=== PATIENT | male | born 1965 | race Two or more races ===

== ENCOUNTER 2018-06-08 17:23 | Inpatient (IN) | payer MEDICAID ==
[~2018-06-08] VITALS: Ht 167.6 cm; Wt 76.7 kg
--- NOTE | 2018-06-08 19:00 | NUR ---
MS RN RECEIVED PT ON BED, A/O X 3, NOT IN ANY FORM OF DISTRESS, RESPIRATIONS EVEN AND UNLABORED, NO SOB NOTED, STABLE CONDITION. SAFETY MEASURES IN PLACE. WILL CONTINUE TO MONITOR.
--- NOTE | 2018-06-08 19:01 | NUR ---
RN NOTES ADMISSION RECEIVED PT. FROM AMBULANCE. PT. IS A&OX4. BREATHING ON ROOM AIR UNLABORED. VITAL SIGNS TAKEN. NO S/S OF ACUTE DISTRESS. PT.'S WEIGHT 167.8 LBS. PT. REFUSED HAVING BELONGINGS CHECKED BY ASSISTANT KITCHEN MANAGER. PT.'S BED IS IN LOWEST, AND LOCKED POSITION. 2 SIDE RAILS UP, AND INSTRUCTED PT. TO USE CALL LIGHT FOR ASSISTANCE. ALL NEEDS MET. WILL ENDORSE REPORT TO NURSE.
[2018-06-08 19:05] VITALS: BP 138/74
--- NOTE | 2018-06-08 19:36 | NUR ---
ENDORSE PT TO NEXT NIGHT RN PT STABLE
--- NOTE | 2018-06-08 19:37 | NUR ---
RN CLOSING NOTES ENDORSED REPORT TO NURSE. PT. IS A&OX4. VITALS WNL. PT. IS BREATHING UNLABORED ON ROOM AIR. NO S/S OF ACUTE DISTRESS. NOTIFIED MD THAT PT. HAS ARRIVED TO ROOM 312. BED IS IN LOWEST, AND LOCKED POSITION.
[2018-06-08 20:00] VITALS: BP 145/74
[2018-06-08] MEDS ORDERED: Z GUARD REMEDY 2 OZ OINT TP PRN (20:30)
[2018-06-08] MEDS ORDERED: ONDANSETRON HCL/PF 4 MG/2 ML VIAL IVP PRN (20:30)
[2018-06-08] MEDS ORDERED: ZOLPIDEM TARTRATE 5 MG TABLET PO PRN (20:30)
[2018-06-08] MEDS ORDERED: ACETAMINOPHEN 325 MG TABLET PO PRN (20:30)
[2018-06-08] MEDS ORDERED: FEE PK DOSING 1 MIN EA MC ONE (20:35)
--- NOTE | 2018-06-08 21:00 | NUR ---
MS RN NOTES RECEIVED PT ON BED. A/O X 4. ON ROOM AIR NO RESPIRATORY DISTRESS NOTED. PHYSICAL ASSESSMENT DONE. IV ACCESS ON LEFT WRIST G20 IV RUNNING @ 75CC/HR. HEAD OF BED ELEVATED. SIDE RAILS UP. CALL LIGHT WITHIN REACH. BED ALARM ON. WILL CONTINUE TO MONITOR PT CLOSELY.
[2018-06-08] MEDS: IV NS 0.9% 1,000 ML IV PRN (21:42)
[2018-06-08] MEDS: HYDROCODONE/APAP 5/325MG 1 EACH TABLET PO PRN (23:08)
[2018-06-09] MEDS: HYDROCODONE/APAP 10/325MG 1 EA TABLET PO PRN ×3 (00:57→21:12)
[2018-06-09] MEDS: VANCOMYCIN 1 GM in IV D5W 250 ML IV SCH ×2 (01:00→14:25)
[2018-06-09 04:00] VITALS: BP 113/69
--- NOTE | 2018-06-09 06:33 | NUR ---
MS RN NOTES NO ACUTE CHANGES NOTED DURING THE SHIFT. PROVIDED COMFORT AND SAFETY. WILL ENDORSE TO THE AM NURSE FOR CONTINUITY OF CARE.
[2018-06-09 07:18] LABS: BASOPHILS % (AUTO) 0.2 % (0.0-2.0); EOSINOPHILS % (AUTO) 2.5 % (0.0-6.0); HEMATOCRIT 39 % (39-51); HEMOGLOBIN 12.8 g/dL (13.5-17.5); LYMPHOCYTES # (AUTO) 1.4 /CMM (0.8-4.8); LYMPHOCYTES % (AUTO) 8.1 % (20.0-44.0); MEAN CORPUSCULAR HGB CONC 33 g/dl (31.0-36.0); MEAN CORPUSCULAR VOLUME 95 fL (80-96); MONOCYTES # (AUTO) 1.4 /CMM (0.1-1.30); MONOCYTES % (AUTO) 8.1 % (2.0-12.0); NEUTROPHILS # (AUTO) 14.5 /CMM (1.8-8.9); NEUTROPHILS % (AUTO) 81.1 % (43.0-81.0); PLATELET COUNT (AUTO) 252 /CMM (150-450); RED BLOOD CELL COUNT(AUTO) 4.06 MIL/uL (4.5-6.0); WHITE BLOOD COUNT (AUTO) 17.8 K/uL (4.3-11.0)
--- NOTE | 2018-06-09 07:30 | NUR ---
MS RN OPENING NOTES RECEIVED PT ON BED. A/O X 4. ON ROOM AIR NO RESPIRATORY DISTRESS NOTED. IV ACCESS ON LEFT WRIST G20 IV NS @ 75CC/HR. HEAD OF BED ELEVATED. SIDE RAILS UP. CALL LIGHT WITHIN REACH. BED ALARM ON. BED IS LOW NAD IN LOCKED POSITION.WAITING FOR WOUND CARE CONSULT.WILL CONTINUE TO MONITOR.
[2018-06-09 07:35] LABS: CALCIUM, SERUM 8.2 mg/dL (8.5-10.1); CREATININE 0.8 mg/dL (0.6-1.3); MAGNESIUM 1.9 mg/dL (1.8-2.4); PHOSPHORUS 3.5 mg/dL (2.5-4.9); POTASSIUM 3.4 mmol/L (3.5-5.1)
[2018-06-09 07:49] LABS: THYROID STIMULATING HORMONE 2.73 uIU/mL (0.358-3.74)
[2018-06-09] MEDS: PANTOPRAZOLE 40 MG TABLET.DR PO SCH (07:49)
[2018-06-09] MEDS: HYDROCODONE/APAP 5/325MG 1 EACH TABLET PO PRN ×2 (07:58→12:00)
[2018-06-09 08:00] VITALS: BP 125/71
[2018-06-09] MEDS: CEFTRIAXONE 2 G in IV D5W 100 ML IV SCH (11:57)
--- NOTE | 2018-06-09 12:32 | NUR ---
MS RN NOTE SEEN BY ,UPDATED ABOUT PATIENT CONDITION ABOUT LOW GRADE FEVER AND WAITING FOR WOUND CARE CONSULT.UPDATED ABOUT NEW LABS WITH POTASSIUM LEVEL OF 3.4.WILL CONTINUE TO MONITOR
--- NOTE | 2018-06-09 13:26 | NUR ---
WOUND CARE CONSULT: PT PRESENTS WITH RT KNEE OPEN WOUND WITH FOUL PURULENT DRAINAGE AND SURROUNDING REDNESS WITH EDEMA. PT UNABLE TO TOLERATE PROBING OF WOUND DUE TO DISCOMFORT. RECOMMEND ORTHO/SURGICAL CONSULT. DISCUSSED WOUND CARE/SKIN PROTECTION WITH NURSING STAFF. PT IS CONTINENT AND INDEPENDENT WITH BED MOBILITY. WILL SEE PRN. MONCADA IN AGREEMENT WITH PLAN OF CARE. Addendum: 06/09/18 at 1328 by CALEB MORIN WNDNU Amended: Links added.
--- NOTE | 2018-06-09 13:54 | NUR ---
PATIENT XRAY DISC FROM [employer] SEND TO [facility] FOR UPLOAD.AWAITS ORTHO CONSULT.
[2018-06-09] MEDS ORDERED: POTASSIUM CHLORIDE 20 MEQ TAB.PRT.SR PO SCH (14:00)
[2018-06-09] MEDS: IV NS 0.9% 1,000 ML IV PRN (15:25)
--- NOTE | 2018-06-09 15:50 | NUR ---
PATIENT SEEN BY GLASS CHECKER AND RECOMMEND PSYCHE EVAL R/T DEPRSSION,DR. FAUSTIN MADE AWARE,FACE SHEET FAX TO [employer] FOR CONSULT.PER SHIREEN PT ALSO HOMELESS AND WILL NEED [facility] POST D/C.
[2018-06-09 16:00] VITALS: BP 132/81
--- NOTE | 2018-06-09 16:02 | NUR ---
MS RN NOTE SEEN BY ,WOUND CARE DONE AND SEND FLUID FOR ANALYSIS.WILL CONTINUE TO MONITOR.
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
--- NOTE | 2018-06-09 16:58 | NUR ---
MS RN NOTE GOT CALL FROM SOSA FROM LAB,TOLD THAT SPECIMEN NOT ENOUGH TO DO BODY FLUID ANALYSIS AND CRYSTALS. MADE AWARE,TO DO GRAM STAIN AND CULTURE AND OK TO CANCEL OTHER ORDERS.SOSA FROM LAB MADE AWARE.LOGGED TO DO CULTURE GRAM STAIN.WILL CONTINUE TO MONITOR.
--- NOTE | 2018-06-09 18:54 | NUR ---
MS RN CLOSING NOTES PT ON BED. A/O X 4. ON ROOM AIR NO RESPIRATORY DISTRESS NOTED. IV ACCESS ON LEFT WRIST G20 IV NS @ 75CC/HR. HEAD OF BED ELEVATED. SIDE RAILS UP. CALL LIGHT WITHIN REACH. BED ALARM ON. BED IS LOW AND IN LOCKED POSITION.MILD DRAINAGE PRESENT FROM R KNEE.WRAP WITH DYAN BAND.PRN PAIN MEDS GIVEN.WILL ENDORSE TO PM NURSE FOR NADINE.
--- NOTE | 2018-06-09 19:00 | NUR ---
RECIEVED ALERT AND ORIENTATED NOTED HE UNDID THE ACEWRAP STATED IT WAS UNCOMFORTABLE. EXPLAINED TO HIIM WHY THE DYAN WRAP IS BEING USED. HE STATED HE KNOWS BUT I NEED TO TAKE IT OFF SOMETIMES. KNEE IS SWOLLEN AND WARM TO TOUCH. FAMILY AT THE BEDSIDE
[2018-06-09 20:00] VITALS: BP 134/80
[2018-06-09 21:03] VITALS: BP 134/80
[2018-06-10] MEDS: VANCOMYCIN 1 GM in IV D5W 250 ML IV SCH ×3 (01:50→21:53)
[2018-06-10] MEDS: HYDROCODONE/APAP 10/325MG 1 EA TABLET PO PRN ×3 (03:43→11:53)
[2018-06-10 04:00] VITALS: BP 145/74
[2018-06-10 04:05] VITALS: BP 134/80
[2018-06-10 04:11] VITALS: BP 145/74
--- NOTE | 2018-06-10 05:40 | NUR ---
ENDING NOTES: ALERT AND ORIENTATED. C/O PAIN RIGHT KNEE X2 LAST DOSE NORCO 10/325 TAB 1 GIVEN AT 03:45 AND EFFECTIVE FOR RIGHT KNEE PAIN. DRINKS WATER EXCESIVLY AND VOID FREQUETLY. LEGS UP ON PILLOW. RIGHT KNEE SWOLLEN. HE TAKES OF THE DRESSING , STSTING HIS LEG ITCHED OR IT FELT BETTER W/O DRESSING. INSTRUCTED HIM TO NOTE TAKE THE DRESSING OFF.
[2018-06-10 07:37] LABS: CALCIUM, SERUM 8.5 mg/dL (8.5-10.1); CREATININE 0.8 mg/dL (0.6-1.3); POTASSIUM 3.5 mmol/L (3.5-5.1)
[2018-06-10 08:00] VITALS: BP 130/84
[2018-06-10] MEDS: PANTOPRAZOLE 40 MG TABLET.DR PO SCH (08:10)
[2018-06-10] MEDS: MAGNESIUM HYDROXIDE 30 ML UDC PO PRN (11:51)
[2018-06-10] MEDS: CEFTRIAXONE 2 G in IV D5W 100 ML IV SCH (11:51)
[2018-06-10] MEDS: DULOXETINE HCL 30 MG CAPSULE.DR PO SCH (11:51)
[2018-06-10 16:00] VITALS: BP 142/73
[2018-06-10] MEDS: LACTOBACILLUS RHAMNOSUS GG 1 EACH CAP.SPRINK PO SCH (17:22)
[2018-06-10] MEDS: HYDROCODONE/APAP 5/325MG 1 EACH TABLET PO PRN ×3 (17:22→21:52)
[2018-06-10 20:00] VITALS: BP 145/84
[2018-06-11] VITALS: BP 139/73
[2018-06-11 04:00] VITALS: BP_SYST 139; BP_SYST 151; BP_DIAS 77; BP_DIAS 92
[2018-06-11] MEDS: VANCOMYCIN 1 GM in IV D5W 250 ML IV SCH ×3 (06:15→22:39)
[2018-06-11 07:26] LABS: BASOPHILS # (AUTO) 0.2 /CMM (0.0-0.2); BASOPHILS % (AUTO) 1.2 % (0.0-2.0); EOSINOPHILS % (AUTO) 2.1 % (0.0-6.0); HEMATOCRIT 38 % (39-51); HEMOGLOBIN 12.6 g/dL (13.5-17.5); LYMPHOCYTES # (AUTO) 2.2 /CMM (0.8-4.8); MEAN CORPUSCULAR HGB CONC 34 g/dl (31.0-36.0); MEAN CORPUSCULAR VOLUME 93 fL (80-96); MONOCYTES # (AUTO) 1.4 /CMM (0.1-1.30); MONOCYTES % (AUTO) 9.8 % (2.0-12.0); NEUTROPHILS # (AUTO) 10.6 /CMM (1.8-8.9); NEUTROPHILS % (AUTO) 71.9 % (43.0-81.0); PLATELET COUNT (AUTO) 353 /CMM (150-450); RED BLOOD CELL COUNT(AUTO) 4.02 MIL/uL (4.5-6.0); WHITE BLOOD COUNT (AUTO) 14.7 K/uL (4.3-11.0)
[2018-06-11 07:41] LABS: CALCIUM, SERUM 8.6 mg/dL (8.5-10.1); CREATININE 0.8 mg/dL (0.6-1.3); MAGNESIUM 2.2 mg/dL (1.8-2.4); PHOSPHORUS 4.3 mg/dL (2.5-4.9); POTASSIUM 3.7 mmol/L (3.5-5.1)
[2018-06-11 08:00] VITALS: BP 130/75
[2018-06-11] MEDS: LACTOBACILLUS RHAMNOSUS GG 1 EACH CAP.SPRINK PO SCH ×2 (08:58→17:18)
[2018-06-11] MEDS: PANTOPRAZOLE 40 MG TABLET.DR PO SCH (08:58)
[2018-06-11] MEDS: DULOXETINE HCL 30 MG CAPSULE.DR PO SCH (08:59)
[2018-06-11] MEDS: HYDROCODONE/APAP 10/325MG 1 EA TABLET PO PRN ×3 (09:13→22:57)
--- NOTE | 2018-06-11 10:50 | NUR ---
SHIREEN met with pt. to discuss discharge plan. Initially pt. was hesitant to go to a SNF for his knee because he was afraid he would lose his GR and food stamps. However, pt. is willing to go now to rehab. SHIREEN informed rn field case manager Kady regarding pt. wanting to go to a rehab facility. SHIREEN did give pt. [facility] [phone] [place] Custodial program resources along with [facility] homeless resource directory and the following resources: Mental Health clinics [facility] [address] [place], [place] [phone] [facility] [address] [facility], 2nd [place] [address] Main Number: Adult Full Service Partnership (AFSP): Contact [facility] [address] [place] [address] HOURS: Mon-Thu 8am--7pm Saturdays 9am--5:30pm Closed on Sundays [facility], [place] [address] Operation Hours: MON - FRI 8:00 a.m. - 5:00 p.m. Walk In Hours: MON - FRI 8:00 a.m. - 5:00 p.m. Services by Age: Adults and Older Adults Mental Health Services: Field Capable Clinical Services (FCCS) Healthcare Clinics for Homeless patients [facility] [address], [address] [place]. [place] Hours: M, T, Th, F 8:30AM-4:30PM Walk-ins allowed Provide medical screening and pharmacy [facility] [address] [place] [address] Hours M-F 8AM-3:30PM Walk-ins allowed Provide medical screening and pharmacy [facility] [address] [address] [place] [address] Hours 8AM-4:30PM Walk-ins allowed Provide medical screening and pharmacy No other social service needs are required at this time. Pt. states he will sign the Homeless Patient Waiver Form upon discharge from the hospital.
[2018-06-11] MEDS: CEFTRIAXONE 2 G in IV D5W 100 ML IV SCH (13:19)
[2018-06-11 16:00] VITALS: BP 159/92
[2018-06-11 20:00] VITALS: BP 149/87
--- NOTE | 2018-06-11 20:00 | NUR ---
RN INITIAL NOTES RECEIVED PT ON BED. A/O X 4. ON ROOM AIR NO RESPIRATORY DISTRESS NOTED. IV ACCESS ON LEFT WRIST G20 S/L. HEAD OF BED ELEVATED. SIDE RAILS UP. CALL LIGHT WITHIN REACH. BED ALARM ON. BED IS LOW AND IN LOCKED POSITION.WILL CONTINUE TO MONITOR.
[2018-06-12 04:00] VITALS: BP 139/81
[2018-06-12] MEDS: VANCOMYCIN 1 GM in IV D5W 250 ML IV SCH ×3 (05:14→21:23)
--- NOTE | 2018-06-12 06:23 | NUR ---
RN CLOSING NOTES PT ON BED. A/O X 4. ON ROOM AIR NO RESPIRATORY DISTRESS NOTED. IV ACCESS ON LEFT WRIST S/L. HEAD OF BED ELEVATED. SIDE RAILS UP. CALL LIGHT WITHIN REACH. BED ALARM ON. BED IS LOW AND IN LOCKED POSITION.WRAP WITH DYAN BAND.PRN PAIN MEDS GIVEN. ISOLATION OBSERVED, WILL ENDORSE TO AM NURSE FOR NADINE.
[2018-06-12 07:27] LABS: BASOPHILS # (AUTO) 0.1 /CMM (0.0-0.2); BASOPHILS % (AUTO) 0.7 % (0.0-2.0); EOSINOPHILS % (AUTO) 2.7 % (0.0-6.0); HEMATOCRIT 40 % (39-51); HEMOGLOBIN 13.8 g/dL (13.5-17.5); LYMPHOCYTES # (AUTO) 2.7 /CMM (0.8-4.8); MEAN CORPUSCULAR HGB CONC 35 g/dl (31.0-36.0); MEAN CORPUSCULAR VOLUME 93 fL (80-96); MONOCYTES % (AUTO) 8.2 % (2.0-12.0); NEUTROPHILS % (AUTO) 66.4 % (43.0-81.0); PLATELET COUNT (AUTO) 441 /CMM (150-450); WHITE BLOOD COUNT (AUTO) 12.1 K/uL (4.3-11.0)
--- NOTE | 2018-06-12 07:30 | NUR ---
INITIAL: RECEIVED PT ON BED. A/O X 4. ON ROOM AIR NO RESPIRATORY DISTRESS NOTED. IV ACCESS ON LEFT WRIST G20 S/L. HEAD OF BED ELEVATED. SIDE RAILS UP. PT NOTED TO TAKE RIGHT KNEE DRESSING OFF . RIGHT KNEE SWOLLEN WITH REDNESS.CALL LIGHT WITHIN REACH. BED ALARM ON. BED IS LOW AND IN LOCKED POSITION.WILL CONTINUE TO MONITOR.
[2018-06-12 08:00] VITALS: BP 159/97
[2018-06-12] MEDS: PANTOPRAZOLE 40 MG TABLET.DR PO SCH (08:01)
[2018-06-12 08:03] LABS: CALCIUM, SERUM 8.8 mg/dL (8.5-10.1); CREATININE 0.9 mg/dL (0.6-1.3); MAGNESIUM 2.4 mg/dL (1.8-2.4); PHOSPHORUS 4.9 mg/dL (2.5-4.9); POTASSIUM 4.2 mmol/L (3.5-5.1)
[2018-06-12 08:37] LABS: BAND % (MANUAL) 3 % (0.0-5.0); EOSINOPHILS % (MANUAL) 2 % (0-4); LYMPHOCYTES % (MANUAL) 20 % (16-48); MONOCYTES % (MANUAL) 9 % (0-11.0); NEUTROPHILS % (MANUAL) 66 (42-76)
[2018-06-12] MEDS: LACTOBACILLUS RHAMNOSUS GG 1 EACH CAP.SPRINK PO SCH ×2 (08:55→17:08)
[2018-06-12] MEDS: DULOXETINE HCL 30 MG CAPSULE.DR PO SCH (08:56)
[2018-06-12] MEDS: HYDROCODONE/APAP 10/325MG 1 EA TABLET PO PRN ×2 (09:22→21:32)
[2018-06-12 12:00] VITALS: BP 143/76
[2018-06-12] MEDS: CEFTRIAXONE 2 G in IV D5W 100 ML IV SCH (12:31)
[2018-06-12] MEDS: HYDROCODONE/APAP 5/325MG 1 EACH TABLET PO PRN (15:49)
[2018-06-12 16:00] VITALS: BP 135/66
--- NOTE | 2018-06-12 18:09 | NUR ---
CLOSING ALERT AND ORIENTATED. C/O PAIN RIGHT KNEE X2 LAST DOSE NORCO 5/325 TAB 1 GIVEN AT 1550 AND EFFECTIVE FOR RIGHT KNEE PAIN. DRINKS WATER EXCESIVLY AND VOID FREQUETLY. LEGS UP ON PILLOW. RIGHT KNEE SWOLLEN. HE TAKES OF THE DRESSING ,STATES HIS WOUND IS BLEEDING. NO BLEEDING NOTED DRESSED WOUND AND COVERED DRESSING INTACT WILL ENDORSE CARE TO PM SHIFT..
--- NOTE | 2018-06-12 19:10 | NUR ---
RN OPENING NOTES Received patient in bed, watching TV. Alert, oriented x 4. Breathing even and unlabored. Not in any distress. No complaints as of this time. IV access on L hand intact and patent. Dressing on R knee intact. Safety measures in place, call ferguson within reach. Bed in low, locked position. Patient stable as endorsed by the morning RN. Will continue to monitor accordingly
[2018-06-12 21:09] VITALS: BP 124/64
[2018-06-13 04:03] VITALS: BP 120/70
[2018-06-13] MEDS: HYDROCODONE/APAP 5/325MG 1 EACH TABLET PO PRN (05:12)
[2018-06-13] MEDS: VANCOMYCIN 1 GM in IV D5W 250 ML IV SCH ×3 (05:13→21:03)
--- NOTE | 2018-06-13 06:33 | NUR ---
RN CLOSING NOTES Patient resting in bed, watching TV. Alert, oriented x 4. Breathing even and unlabored. Not in any distress. No complaints of pain as of this time. IV access on L hand intact and patent. Dressing on R knee intact. Patient uses the urinal and ambulated to the bathroom x 2, with walker with standby assist. All needs attended to. All due medications given as ordered. Safety measures in place, call ferguson within reach. Bed in low, locked position. Patient stable, no acute changes overnight. Will endorse NADINE to oncoming RN.
[2018-06-13 07:49] LABS: CREATININE 0.9 mg/dL (0.6-1.3); POTASSIUM 4.3 mmol/L (3.5-5.1)
[2018-06-13 08:00] VITALS: BP 134/72
[2018-06-13] MEDS: LACTOBACILLUS RHAMNOSUS GG 1 EACH CAP.SPRINK PO SCH ×2 (08:51→16:10)
[2018-06-13] MEDS: DULOXETINE HCL 30 MG CAPSULE.DR PO SCH (08:51)
[2018-06-13] MEDS: HYDROCODONE/APAP 10/325MG 1 EA TABLET PO PRN ×3 (08:56→22:17)
[2018-06-13] MEDS: PANTOPRAZOLE 40 MG TABLET.DR PO SCH (09:53)
[2018-06-13] MEDS: CEFTRIAXONE 2 G in IV D5W 100 ML IV SCH (15:07)
[2018-06-13 16:00] VITALS: BP 140/70
--- NOTE | 2018-06-13 19:30 | NUR ---
RN MS OPENING NOTES RECEIVED PATIENT IN BED AWAKE, ALERT AND ORIENTED X3, VERBALLY RESPONSIVE, ABLE TO MAKE NEEDS KNOWN. BREATHING EVEN AND UNLABORED. NO SOB NOTED. TOLERATING ROOM AIR. NO COMPLAINTS OF PAIN OR DISCOMFORT. NO FACIAL GRIMACING. IV ON LEFT G#20 INTACT AND PATENT. SKIN DRY AND WARM TO TOUCH. AFEBRILE. PATIENT IS AMBULATORY WITH A FWW. ALL OTHER NEEDS ATTENDED TO. SAFETY MEASURES IN PLACE. CALL LIGHT WITHIN EACH. WILL CONTINUE TO MONITOR.
[2018-06-13 20:00] VITALS: BP 107/71
[2018-06-13] MEDS: MAG HYDROX/AL HYDROX/SIMETH 30 ML UDC PO PRN (22:20)
[2018-06-14 04:00] VITALS: BP 131/69
[2018-06-14] MEDS: VANCOMYCIN 1 GM in IV D5W 250 ML IV SCH ×3 (05:42→21:36)
[2018-06-14] MEDS: HYDROCODONE/APAP 10/325MG 1 EA TABLET PO PRN ×3 (05:49→19:54)
--- NOTE | 2018-06-14 05:53 | NUR ---
RN MS NOTES PATIENT REFUSED BLOOD DRAW AT THE MOMENT AND WANTS IT AT A LATER TIME SO HE CAN REST MORE. PHLEB WILL COME BACK AROUND 7:30AM.
--- NOTE | 2018-06-14 07:30 | NUR ---
RN MS NOTES RECEIEVED PATIENT AWAKE IN BED A/O X4. NO SIGNS OR SYMPTOMS OF RESPIRATORY DISTRESS OR ACUTE PAIN NOTED LAST NORCO GIVEN @0549. AMBULATORY IN ROOM WITHOUT ASSIST. RIGHT KNEE CELLULITIS AWAITING WOUND CONSULT. L HAND @ 20 GAUGE SALINE LOCK .SAFETY PRECAUTIONS IN PLACE BED IN LOW POSITION CALL LIGHT WITHIN REACH. WILL CONT TO MONITOR.
[2018-06-14] MEDS: PANTOPRAZOLE 40 MG TABLET.DR PO SCH (07:35)
--- NOTE | 2018-06-14 07:41 | NUR ---
RN MS CLOSING NOTES PATIENT RESTING IN BED. NO ACUTE CHANGES THROUGHOUT SHIFT. BREATHING EVEN AND UNLABORED. NO SOB NOTED. TOLERATING ROOM AIR. NO COMPLAINTS OF PAIN OR DISCOMFORT. NO FACIAL GRIMACING. IV ON LEFT G#20 INTACT AND PATENT. SKIN DRY AND WARM TO TOUCH. AFEBRILE. PATIENT IS AMBULATORY WITH A FWW. ALL OTHER NEEDS ATTENDED TO. SAFETY MEASURES IN PLACE. CALL LIGHT WITHIN EACH. ENDORSED TO ONCOMING NURSE FOR NADINE.
[2018-06-14 08:00] VITALS: BP 114/92
[2018-06-14 08:24] LABS: BASOPHILS # (AUTO) 0.1 /CMM (0.0-0.2); BASOPHILS % (AUTO) 0.8 % (0.0-2.0); EOSINOPHILS % (AUTO) 1.5 % (0.0-6.0); HEMATOCRIT 43 % (39-51); HEMOGLOBIN 14.7 g/dL (13.5-17.5); LYMPHOCYTES # (AUTO) 3.4 /CMM (0.8-4.8); LYMPHOCYTES % (AUTO) 29.2 % (20.0-44.0); MEAN CORPUSCULAR HGB CONC 34 g/dl (31.0-36.0); MEAN CORPUSCULAR VOLUME 93 fL (80-96); MONOCYTES # (AUTO) 0.8 /CMM (0.1-1.30); MONOCYTES % (AUTO) 7.3 % (2.0-12.0); NEUTROPHILS # (AUTO) 7.1 /CMM (1.8-8.9); NEUTROPHILS % (AUTO) 61.2 % (43.0-81.0); PLATELET COUNT (AUTO) 546 /CMM (150-450); RED BLOOD CELL COUNT(AUTO) 4.62 MIL/uL (4.5-6.0); WHITE BLOOD COUNT (AUTO) 11.7 K/uL (4.3-11.0)
[2018-06-14] MEDS: DULOXETINE HCL 30 MG CAPSULE.DR PO SCH (08:35)
[2018-06-14] MEDS: LACTOBACILLUS RHAMNOSUS GG 1 EACH CAP.SPRINK PO SCH ×2 (08:35→16:46)
[2018-06-14 08:57] LABS: BAND % (MANUAL) 1 % (0.0-5.0); LYMPHOCYTES % (MANUAL) 32 % (16-48); METAMYELOCYTES % 1 % (0-0); MONOCYTES % (MANUAL) 6 % (0-11.0); NEUTROPHILS % (MANUAL) 60 (42-76)
[2018-06-14 09:07] LABS: MAGNESIUM 2.7 mg/dL (1.8-2.4); PHOSPHORUS 4.5 mg/dL (2.5-4.9)
[2018-06-14 10:00] LABS: CALCIUM, SERUM 8.8 mg/dL (8.5-10.1); POTASSIUM 4.4 mmol/L (3.5-5.1)
[2018-06-14] MEDS: CEFTRIAXONE 2 G in IV D5W 100 ML IV SCH (11:59)
[2018-06-14 16:00] VITALS: BP_SYST 137; BP_SYST 138; BP_DIAS 66; BP_DIAS 69
--- NOTE | 2018-06-14 19:27 | NUR ---
RN MS NOTES AWAKE IN BED A/O X4. NO SIGNS OR SYMPTOMS OF RESPIRATORY DISTRESS OR ACUTE PAIN NOTED . AMBULATORY IN ROOM WITHOUT ASSIST. RIGHT KNEE CELLULITIS AWAITING INFECTIOUS DISEASE CONSULT DRESSING CLEAN AND CHANGED L HAND @ 20 GAUGE SALINE LOCK .SAFETY PRECAUTIONS IN PLACE BED IN LOW POSITION CALL LIGHT WITHIN REACH. NADINE
--- NOTE | 2018-06-14 19:30 | NUR ---
RECEIVED PATIENT IN BED AWAKE, AO X 3, ABLE TO MAKE NEEDS KNOWN. NO ACUTE DISTRESS NOTED. MONITORED FOR PAIN. IV SITE PATENT, INTACT; FLUSHED. SAFETY REMINDERS AND INFECTION CONTROL EDUCATION GIVEN. ON LOW BED WITH BILATERAL UPPER SIDE RAILS UP. CALL VIDALES WITHIN EASY REACH. WILL CONTINUE TO MONITOR.
[2018-06-14] MEDS: MAG HYDROX/AL HYDROX/SIMETH 30 ML UDC PO PRN (19:54)
[2018-06-14 20:00] VITALS: BP 111/61
[2018-06-15] MEDS: HYDROCODONE/APAP 10/325MG 1 EA TABLET PO PRN ×4 (01:13→22:13)
[2018-06-15] MEDS: MAGNESIUM HYDROXIDE 30 ML UDC PO PRN (01:32)
[2018-06-15 04:00] VITALS: BP 126/68
[2018-06-15] MEDS: VANCOMYCIN 1 GM in IV D5W 250 ML IV SCH ×3 (05:56→22:00)
--- NOTE | 2018-06-15 06:47 | NUR ---
PATIENT ASLEEP, EASILY AROUSABLE. RESPIRATIONS EVEN. NO SIGNS OF PAIN NOTED. DUE MEDS GIVEN WITH NO ASE NOTED. NEEDS ATTENDED. SAFETY PRECAUTIONS AND COMFORT MEASURES IN PLACE. WILL GIVE REPORT TO DAY SHIFT FOR CONTINUITY OF CARE.
[2018-06-15 08:00] VITALS: BP 121/72
[2018-06-15] MEDS: LACTOBACILLUS RHAMNOSUS GG 1 EACH CAP.SPRINK PO SCH ×2 (08:43→18:04)
[2018-06-15] MEDS: PANTOPRAZOLE 40 MG TABLET.DR PO SCH (08:43)
[2018-06-15] MEDS: DULOXETINE HCL 30 MG CAPSULE.DR PO SCH (08:43)
[2018-06-15] MEDS: CEFTRIAXONE 2 G in IV D5W 100 ML IV SCH (11:11)
[2018-06-15 16:00] VITALS: BP 115/69
--- NOTE | 2018-06-15 19:00 | NUR ---
RN NOTE PT REMAINED STABLE, WILL ENDORSE TO SURVEY RODMAN.
[2018-06-15 20:00] VITALS: BP 124/75
--- NOTE | 2018-06-15 20:00 | NUR ---
RN NOTES RECEIVED PATIENT AWAKE IN BED A/O X4. NO SIGNS OR SYMPTOMS OF RESPIRATORY DISTRESS NOTED AT THIS TIME. NO SOB AT THIS TIME. LEFT HAND @ 20 GAUGE [address]OCK IS IN PLACE. SAFETY PRECAUTIONS IN PLACE, BED IN LOW, LOCKED POSITION, CALL LIGHT WITHIN REACH. WILL CONT TO MONITOR.
[2018-06-16 04:00] VITALS: BP 136/69
[2018-06-16] MEDS: VANCOMYCIN 1 GM in IV D5W 250 ML IV SCH ×2 (06:06→13:07)
[2018-06-16] MEDS: HYDROCODONE/APAP 10/325MG 1 EA TABLET PO PRN ×2 (06:28→14:03)
--- NOTE | 2018-06-16 07:00 | NUR ---
MS RN OPENING NOTES RECEIVED PT LYING ON BED.ALERT/ORIENTED X4.ON ROOM AIR,TOLERATING WELL. NO SOB AND ACUTE DISTRESS NOTED.CAN AMBULATE WITH WALKER WITH MINIMAL SUPERVISION.WOUND DRESSING ON RIGHT KNEE IS IN PLACE NAD INTACT. IV LINE IS ON RIGHT HAND G20,SL.IV SITE IS CLEAN,DRY AND INTACT.NO INFILTRATION NOTED.SAFETY IS MAINTAINED AT ALL TIMES.CALL LIGHT IS WITHIN REACH.WILL CONTINUE TO MONITOR THE PT CLOSELY.
[2018-06-16 08:00] VITALS: BP_SYST 104; BP_SYST 124; BP_DIAS 39; BP_DIAS 70
[2018-06-16 08:07] LABS: BASOPHILS # (AUTO) 0.1 /CMM (0.0-0.2); BASOPHILS % (AUTO) 0.8 % (0.0-2.0); EOSINOPHILS % (AUTO) 1.7 % (0.0-6.0); HEMATOCRIT 40 % (39-51); HEMOGLOBIN 13.6 g/dL (13.5-17.5); LYMPHOCYTES # (AUTO) 2.8 /CMM (0.8-4.8); LYMPHOCYTES % (AUTO) 28.5 % (20.0-44.0); MEAN CORPUSCULAR HGB CONC 34 g/dl (31.0-36.0); MEAN CORPUSCULAR VOLUME 93 fL (80-96); MONOCYTES # (AUTO) 0.8 /CMM (0.1-1.30); MONOCYTES % (AUTO) 8.2 % (2.0-12.0); NEUTROPHILS # (AUTO) 5.9 /CMM (1.8-8.9); NEUTROPHILS % (AUTO) 60.8 % (43.0-81.0); PLATELET COUNT (AUTO) 469 /CMM (150-450); RED BLOOD CELL COUNT(AUTO) 4.28 MIL/uL (4.5-6.0); WHITE BLOOD COUNT (AUTO) 9.7 K/uL (4.3-11.0)
[2018-06-16 08:17] LABS: CALCIUM, SERUM 8.4 mg/dL (8.5-10.1); CREATININE 0.9 mg/dL (0.6-1.3); MAGNESIUM 2.5 mg/dL (1.8-2.4); PHOSPHORUS 3.9 mg/dL (2.5-4.9); POTASSIUM 4.6 mmol/L (3.5-5.1)
[2018-06-16] MEDS: LACTOBACILLUS RHAMNOSUS GG 1 EACH CAP.SPRINK PO SCH ×2 (08:19→16:46)
[2018-06-16] MEDS: PANTOPRAZOLE 40 MG TABLET.DR PO SCH (08:19)
[2018-06-16] MEDS: DULOXETINE HCL 30 MG CAPSULE.DR PO SCH (08:20)
[2018-06-16] MEDS: MAG HYDROX/AL HYDROX/SIMETH 30 ML UDC PO PRN (09:28)
[2018-06-16] MEDS: CEFTRIAXONE 2 G in IV D5W 100 ML IV SCH (11:14)
[2018-06-16] MEDS ORDERED: LACT1CAP72 PO (12:41)
[2018-06-16] MEDS ORDERED: AMOX500T2 PO (12:41)
[2018-06-16] MEDS ORDERED: SULF1TAB48 PO (12:41)
[2018-06-16] MEDS ORDERED: DULO30CA2 PO (12:41)
--- NOTE | 2018-06-16 14:45 | NUR ---
SHIREEN met with pt. bedside to discuss discharge plan. Pt. was going to a SNF, however pt. does not have any skilled needs at this time. SHIREEN offered pt. HELLEN simpson [facility] program list for [phone] and explained to him the time and location pickler helper on the list. SHIREEN also gave pt. the following referrals: [facility] Homeless Resource [facility] Mental Health clinics [facility] [address] [place] [address] [facility] [address] [address] [address] [facility], 2nd [place] [address] Main Number: Adult Full Service Partnership (AFSP): Contact [facility] [address] [place] [address] [place], [place] [id number] Healthcare Clinics for Homeless patients [facility] [address], [address] [place]. [place] Hours: M, T, Th, F 8:30AM-4:30PM Walk-ins allowed Provide medical screening and pharmacy [facility] [address] [place] [address] Hours M-F 8AM-3:30PM Walk-ins allowed Provide medical screening and pharmacy [facility] [address] [address]. [place] [phone] Hours 8AM-4:30PM Walk-ins allowed Provide medical screening and pharmacy No other social service needs are requested at this time. Homeless Patient Waiver Form was signed by the pt. and placed in pt's chart. Homeless Waiver Checklist was done as well. SHIREEN updated BRITTANY Hartman regarding pt's discharge plan and requested for a sandwich for the pt. prior to his departure at 3:30PM. SHIREEN also informed BRITTANY Hartman, pt. will require a TAP card.
[2018-06-16 16:00] VITALS: BP 132/79
--- NOTE | 2018-06-16 17:45 | NUR ---
MS PRODUCT TRAINER NOTES ORDERED TO DISCHARGE THE PT.ALL THE DISCHARGE MEDICATIONS AND FOLLOW UP APPOINTMENT HAS DISCUSSED WITH THE OT AND PT SIGNED THE BELONGING LIST.SKIN ASSESSMENT IS DONE AND HAS TAKEN THE PICTURE ON RIGHT KNEE,DRESSING IS INTACT AND IN PLACE.IV LINE FROM RIGHT HAND IS REMOVED,NO BLEEDING IS NOTED AND DRESSING HAS DONE.VITAL SIGNS ARE CHECKED AND RECORDED,WNL.PROVIDE THE MEDS PRESCRIPTION AND WALKER TO THE PT.PT LEFT WITH LUIS ALBERTO,SISTER TO THE HOME BY AMBULATING WITH WALKER TO THE PARKING LOT.NO COMPLICATIONS NOTED.
== END 2018-06-16 17:50 | disposition home or self-care (01) | DRG 720 ==
LOC: MEDSG1 18:36
PROVIDERS: ADMIT Hospitalist; ATTEND Registered Nurse
PROC: 0M9N3ZZ Drainage of Right Knee Bursa and Ligament, Percutaneous Approach (ICD-10-PCS; principal; 2018-06-09)
DX: A41.9 Sepsis, unspecified organism (principal); F33.2 Major depressive disorder, recurrent severe without psychotic features; L03.115 Cellulitis of right lower limb; I10 Essential (primary) hypertension; E78.5 Hyperlipidemia, unspecified; Z59.0 Homelessness; Z91.81 History of falling; M00.9 Pyogenic arthritis, unspecified; M70.41 Prepatellar bursitis, right knee; Y93.55 Activity, bike riding; Y92.410 Unspecified street and highway as the place of occurrence of the external cause; V18.4XXA Pedal cycle driver injured in noncollision transport accident in traffic accident, initial encounter; L02.415 Cutaneous abscess of right lower limb
CPT/HCPCS: 36415; 73700-TC; 80048-TC; 80061-TC; 80202-TC; 83735-TC; 84100-TC; 84443-TC; 85025-TC; 85652-TC; 86140-TC; 87040-TC; 87070-TC; 87081-TC; 87186-TC; A6253; A6402; A6403; A6407; G0378; J0696; J3370; J3490; J7030; J7040; J7050; J7060